=== PATIENT | female | born 1950 | race Asian ===

== ENCOUNTER → 2023-08-10 13:14 | Outpatient (CLI) | payer OTHER, SELFPAY ==
--- NOTE | 2023-08-10 | DI.MRI.S_ITS ---
BREAST MRI OF BOTH BREASTS: 08/10/2023 CLINICAL: Bilateral Breast masses/ Preventative care. TECHNIQUE: The patient was placed prone in a dedicated breast imaging coil. Precontrast axial STIR and 3D FLASH without fat saturation sequences were obtained. Both before and after bolus injection of contrast, sequential 1-minute axial 3D FLASH with fat saturation sequences for 3 time points, with subtraction images and maximum intensity projections (MIP's) generated. Delayed sagittal FLASH images with fat saturation were also obtained. 20 cc ProHance gadolinium based IV contrast. Computer-aided detection, including computer algorithm analysis of MRI image data for lesion detection and characterization, pharmacokinetic analysis, with further physician review for interpretation, was performed. COMPARISON: [facility], , MM SCREENING MAMMO BI, 09/04/2023, 8:28. [facility], , MRI BREAST BILATERAL W / WO CONTRAST, 04/19/2019, 9:43. FINDINGS: Image quality: Excellent. There is mild symmetric background parenchymal enhancement. Right breast: Innumerable diffuse T2 hyperintensities throughout breast parenchyma consistent with history of free silicone injection. No suspicious enhancement. Left breast: Innumerable diffuse T2 hyperintensities throughout breast parenchyma consistent with free silicone injection. No suspicious enhancement. Miscellaneous: No axillary or internal mammary chain adenopathy. Mildly prominent left axillary lymph nodes demonstrate fatty destin. Incidental note of a level 3 lymph node present. The visible portions of the chest wall, liver, heart, and lungs appear normal. IMPRESSION: BENIGN 1. Breast and axillary findings compatible with history of free silicone injection and expected physiologic reaction. 2. No suspicious findings. 3. Recommend annual screening mammography. With the judaism of tomography, mammography is a satisfactory screening tool, although MRI can be used as an adjunct on a semi annual basis. BIRADS 2, benign COMMENT: The imaging literature indicates that a negative contrast breast MRI examination has a high sensitivity and a moderate specificity for detecting and excluding invasive carcinomas to a detection threshold of 3-5 mm; nonetheless, appropriate clinical and mammographic follow-up are recommended. MRI is not sensitive for detecting DCIS (ductal carcinoma in situ) and may not detect large invasive neoplasms that show only minimal enhancement such as mucinous carcinoma. If there are suspicious calcifications or clinically worrisome palpable masses, then biopsy should still be considered. Invasive neoplasms can be hidden by co-existent and benign enhancement caused by mastitis, hormone therapy effects, radiation therapy, , and recent biopsy or surgery. False positive examinations can occur in a number of circumstances, including breasts that have recently been subject to invasive procedures and those that contain atypical ductal hyperplasia, hormonally stimulated glandular tissue, fat necrosis, or radial scars. This exam was interpreted at Station ID: [id number]. Electronically Signed By: Rosy lara/:09/06/2023 09:11:26 letter sent: Normal Exam ACR BI-RADS Category 2: Benign Finding(s) 3342F
== END ==
PROVIDERS: Visit Provider Physician Assistant Medical
DX: N63.10 Unspecified lump in the right breast, unspecified quadrant (principal); N63.20 Unspecified lump in the left breast, unspecified quadrant; Z98.82 Breast implant status
CPT/HCPCS: 77049; A9579

== ENCOUNTER → 2023-09-04 07:34 | Outpatient (CLI) | payer OTHER, SELFPAY ==
--- NOTE | 2023-09-04 | DI.MG.S_ITS ---
BILATERAL DIGITAL SCREENING MAMMOGRAM 3D/2D WITH CAD: 09/04/2023 CLINICAL: Routine screening. Family history of breast cancer. Comparison is made to exams dated: 08/10/2023 breast MRI - [facility], 07/23/2009 mammogram, and 08/05/2009 breast MRI - outside location. Both breasts are extremely dense, which lowers the sensitivity of mammography (category d />75% glandular tissue). Current study was also evaluated with a Computer Aided Detection (CAD) system. Diffuse bilateral silicone injection granulomas and oil cysts are present. There are stable benign cysts in both breasts. There also are stable benign diffuse calcifications in both breasts. Additionally, there are benign post operative findings in both breasts. No significant masses, calcifications, or other findings are seen in either breast. There has been no significant interval change. IMPRESSION: BENIGN There is no mammographic evidence of malignancy. A 1 year screening mammogram is recommended. Based on the Tyrer Cuzick model (a risk assessment model) the patient's lifetime risk is 13.9% and her 10 year risk is 8.9%. According to the ACR, ACS, and NCCN guidelines, an annual breast MRI exam along with mammogram is recommended if the patient's lifetime risk is 20% or greater. This exam was interpreted at Station ID: [id number]. NOTE: For mammograms, a report in lay terms will be sent to the patient. Approximately 15% of breast malignancies will not be visualized mammographically. In the management of a palpable breast mass, a negative mammogram must not discourage biopsy of a clinically suspicious lesion. SUMMARY: Chronic stable findings of free silicone injection bilaterally. Electronically Signed By: Rosy lara/nigel:09/05/2023 17:55:18 letter sent: Normal Exam ACR BI-RADS Category 2: Benign Finding(s) 3342F
== END ==
PROVIDERS: PCP Physician Assistant Medical; Referring Provider Physician Assistant Medical; Visit Provider Physician Assistant Medical
DX: Z12.31 Encounter for screening mammogram for malignant neoplasm of breast (principal); Z80.3 Family history of malignant neoplasm of breast
CPT/HCPCS: 77063; 77067